=== PATIENT | female | born 1940 | race Caucasian/White ===

== ENCOUNTER 2022-08-13 09:22 | Day surgery (SDC) | payer MEDICARE ==
[2022-08-13] MEDS ORDERED: LIDOCAINE HCL 2% 100 MG/5 ML IJ ONE (09:23)
[2022-08-13] MEDS ORDERED: Decadron 4 MG INJ IV ONE (09:23)
[2022-08-13] MEDS ORDERED: DIPRIVAN 200 MG/20 ML IV ONE (11:07)
--- NOTE | 2022-08-13 11:48 | XRAY ---
Indication: Left C2-C5 MBB. Intraoperative fluoroscopy was provided for 11 seconds. 2 digital spot image submitted for interpretation demonstrates posterior needle tips projecting over the expected left C2-C5 nerve roots. Correlate with intraoperative findings/report.
--- NOTE | 2022-08-13 12:08 | XRAY ---
11 seconds of fluoroscopy was used in surgery for a left C2-C5 MBB.
[2022-08-13] MEDS ORDERED: Lactated Ringers 1,000 ML IV ONE (15:18)
== END 2022-08-13 11:40 | disposition home or self-care (01) ==
LOC: SDC-PAIN 09:22
PROVIDERS: ATTEND Psychiatry & Neurology Pain Medicine
DX: M47.812 Spondylosis without myelopathy or radiculopathy, cervical region (principal); Z79.899 Other long term (current) drug therapy
CPT/HCPCS: 64490; 64491; 64492; 72040; 77002; J1100; J2704

== ENCOUNTER 2022-10-01 10:11 | Day surgery (SDC) | payer MEDICARE ==
[2022-10-01] MEDS ORDERED: BUPIVACAINE 0.5% VIAL IJ ONE (10:12)
[2022-10-01] MEDS ORDERED: Decadron 4 MG INJ IV ONE (10:12)
[2022-10-01] MEDS ORDERED: DIPRIVAN 200 MG/20 ML IV ONE (11:20)
--- NOTE | 2022-10-01 13:17 | XRAY ---
Indication: Left C2-C5 MBB. Intraoperative fluoroscopy provided for 14 seconds. 3 digital spot image submitted for interpretation demonstrates posterior needle tips projecting over the expected left C2-C5 nerve roots. Correlate with intraoperative findings/report.
--- NOTE | 2022-10-01 13:23 | XRAY ---
14 seconds of fluoroscopy was used in surgery for a left C2-C5 MBB.
[2022-10-01] MEDS ORDERED: Lactated Ringers 1,000 ML IV ONE (13:36)
== END 2022-10-01 11:50 | disposition home or self-care (01) ==
LOC: SDC-PAIN 10:11
PROVIDERS: ATTEND Psychiatry & Neurology Pain Medicine
DX: M47.812 Spondylosis without myelopathy or radiculopathy, cervical region (principal); Z79.899 Other long term (current) drug therapy
CPT/HCPCS: 64490; 64491; 64492; 72040; 77002; J1100; J2704

== ENCOUNTER 2022-11-06 10:17 | Day surgery (SDC) | payer MEDICARE ==
[2022-11-06] MEDS ORDERED: Decadron 4 MG INJ IV ONE (10:18)
[2022-11-06] MEDS ORDERED: LIDOCAINE HCL 2% 100 MG/5 ML IJ ONE (10:18)
[2022-11-06] MEDS ORDERED: DIPRIVAN 200 MG/20 ML IV ONE (11:26)
[2022-11-06] MEDS ORDERED: Lactated Ringers 1,000 ML IV ONE (11:58)
--- NOTE | 2022-11-06 14:03 | XRAY ---
Indication: Right C2-C5 MBB. Intraoperative fluoroscopy provided for 16 seconds. 2 digital spot image submitted for interpretation demonstrates posterior needle tips projecting over the expected right C2-C5 nerve roots. Correlate with intraoperative findings/report.
--- NOTE | 2022-11-06 14:44 | XRAY ---
16 seconds of fluoroscopy was used in surgery for a right C2-C5 MBB.
== END 2022-11-06 11:55 | disposition home or self-care (01) ==
LOC: SDC-PAIN 10:17
PROVIDERS: ATTEND Psychiatry & Neurology Pain Medicine
DX: M47.812 Spondylosis without myelopathy or radiculopathy, cervical region (principal)
CPT/HCPCS: 64490; 64491; 64492; 72040; 77002; J1100; J2704

== ENCOUNTER 2023-01-14 13:39 | Day surgery (SDC) | payer MEDICARE ==
[2023-01-14] MEDS ORDERED: LIDOCAINE HCL 1% 50 MG/5 ML VL PF IJ ONE (13:40)
[2023-01-14] MEDS ORDERED: Decadron 4 MG INJ IV ONE (13:40)
[2023-01-14] MEDS ORDERED: BUPIVACAINE 0.5% VIAL IJ ONE (13:40)
[2023-01-14] MEDS ORDERED: Lactated Ringers 1,000 ML IV ONE (15:38)
[2023-01-14] MEDS ORDERED: DIPRIVAN 200 MG/20 ML IV ONE (16:00)
--- NOTE | 2023-01-14 16:58 | XRAY ---
Indication: Left C2-C5 RFA. Intraoperative fluoroscopy provided for 38 seconds. 6 digital spot image submitted for interpretation demonstrates posterior needle tips projecting over the expected left C2-C5 nerve roots. Correlate with intraoperative findings/report.
--- NOTE | 2023-01-15 09:10 | XRAY ---
38 seconds of fluoroscopy was used in surgery for a left C2-C5 RFA.
== END 2023-01-14 16:32 | disposition home or self-care (01) ==
LOC: SDC-PAIN 13:39
PROVIDERS: ATTEND Psychiatry & Neurology Pain Medicine
DX: M47.812 Spondylosis without myelopathy or radiculopathy, cervical region (principal); Z79.899 Other long term (current) drug therapy
CPT/HCPCS: 64633; 64634; 72040; 77002; 99100; J1100; J2001; J2704

== ENCOUNTER 2023-01-28 10:53 | Day surgery (SDC) | payer MEDICARE ==
[2023-01-28] MEDS ORDERED: XYLOCAINE-MPF 1% 5ML SDV IJ ONE (10:54)
[2023-01-28] MEDS ORDERED: Decadron 4 MG INJ IV ONE (10:54)
[2023-01-28] MEDS ORDERED: BUPIVACAINE 0.5% VIAL IJ ONE (10:54)
[2023-01-28] MEDS ORDERED: DIPRIVAN 200 MG/20 ML IV ONE (12:41)
[2023-01-28] MEDS ORDERED: Lactated Ringers 1,000 ML IV ONE (14:34)
--- NOTE | 2023-01-28 15:03 | XRAY ---
Indication: Right C2-C5 RFA. Intraoperative fluoroscopy provided for 28 seconds. 4 digital spot image submitted for interpretation demonstrates posterior needle tips projecting over the expected right C2-C5 nerve roots. Correlate with intraoperative findings/report.
--- NOTE | 2023-01-28 15:07 | XRAY ---
28 seconds of fluoroscopy was used in surgery for a right C2-C5 RFA.
== END 2023-01-28 13:18 | disposition home or self-care (01) ==
LOC: SDC-PAIN 10:53
PROVIDERS: ATTEND Psychiatry & Neurology Pain Medicine
DX: M47.812 Spondylosis without myelopathy or radiculopathy, cervical region (principal); Z79.899 Other long term (current) drug therapy
CPT/HCPCS: 64633; 64634; 72040; 77002; J1100; J2704

== ENCOUNTER 2023-03-04 08:05 | Day surgery (SDC) | payer MEDICARE ==
[2023-03-04] MEDS ORDERED: LIDOCAINE HCL 2% 100 MG/5 ML IJ ONE (08:06)
[2023-03-04] MEDS ORDERED: Depo-Medrol 40 MG/ML IM ONE (08:06)
[2023-03-04] MEDS ORDERED: DIPRIVAN 200 MG/20 ML IV ONE (09:21)
[2023-03-04] MEDS ORDERED: Lactated Ringers 1,000 ML IV ONE (11:17)
--- NOTE | 2023-03-04 12:13 | XRAY ---
Indication: Bilateral L1-L3 MBB. Intraoperative fluoroscopy provided for 32 seconds. Single digital spot image submitted for interpretation demonstrates posterior needle tips projecting over expected left and right L1-L3 nerve roots. Correlate with intraoperative findings/report. Incidental incompletely visualized epidural leads and lower lumbar fusion hardware.
--- NOTE | 2023-03-04 12:21 | XRAY ---
32 seconds of fluoroscopy was used in surgery for a bilateral L1-L3 MBB.
== END 2023-03-04 09:50 | disposition home or self-care (01) ==
LOC: SDC-PAIN 08:05
PROVIDERS: ATTEND Psychiatry & Neurology Pain Medicine
DX: M47.817 Spondylosis without myelopathy or radiculopathy, lumbosacral region (principal); Z79.899 Other long term (current) drug therapy
CPT/HCPCS: 64493; 64494; 72020; 77002; J1030; J2704

== ENCOUNTER 2023-04-15 10:38 | Day surgery (SDC) | payer MEDICARE ==
[2023-04-15] MEDS ORDERED: BUPIVACAINE 0.5% VIAL IJ ONE (10:39)
[2023-04-15] MEDS ORDERED: Depo-Medrol 40 MG/ML IM ONE (10:39)
[2023-04-15] MEDS ORDERED: DIPRIVAN 200 MG/20 ML IV ONE (13:46)
[2023-04-15] MEDS ORDERED: Lactated Ringers 1,000 ML IV ONE (13:52)
--- NOTE | 2023-04-15 15:17 | XRAY ---
Indication: Bilateral L1-L3 MBB. Intraoperative fluoroscopy provided 21 seconds. Single digital spot image submitted for interpretation demonstrates posterior needle tips projecting over the expected left and right L1-L3 nerve roots. Correlate with intraoperative findings/report. Incidental incompletely visualized epidural leads and lower lumbar fusion hardware.
--- NOTE | 2023-04-15 16:42 | XRAY ---
21 seconds of fluoroscopy was used in surgery for a bilateral L1-L3 MBB.
== END 2023-04-15 14:10 | disposition home or self-care (01) ==
LOC: SDC-PAIN 10:38
PROVIDERS: ATTEND Psychiatry & Neurology Pain Medicine
DX: M47.816 Spondylosis without myelopathy or radiculopathy, lumbar region (principal)
CPT/HCPCS: 64493; 64494; 72020; 77002; J1030; J2704

== ENCOUNTER 2023-05-13 10:35 | Day surgery (SDC) | payer MEDICARE ==
[2023-05-13] MEDS ORDERED: XYLOCAINE-MPF 1% 5ML SDV IJ ONE (10:36)
[2023-05-13] MEDS ORDERED: BUPIVACAINE 0.5% VIAL IJ ONE (10:36)
[2023-05-13] MEDS ORDERED: Depo-Medrol 40 MG/ML IM ONE (10:36)
[2023-05-13] MEDS ORDERED: Lactated Ringers 1,000 ML IV ONE (12:18)
[2023-05-13] MEDS ORDERED: DIPRIVAN 200 MG/20 ML IV ONE ×2 (12:21→12:28)
--- NOTE | 2023-05-13 14:04 | XRAY ---
Indication: Left L1-L3 RFA. Intraoperative fluoroscopy provided for 23 seconds. 5 digital spot image submitted for interpretation demonstrates posterior needle tips projecting over the expected left L1-L3 nerve roots. Correlate with intraoperative findings/report. Incidental incompletely visualized lower lumbar fusion hardware and epidural leads.
--- NOTE | 2023-05-13 15:13 | XRAY ---
23 seconds of fluoroscopy was used in surgery for a left L1-L3 RFA.
== END 2023-05-13 13:00 | disposition home or self-care (01) ==
LOC: SDC-PAIN 10:35
PROVIDERS: ATTEND Psychiatry & Neurology Pain Medicine
DX: M47.816 Spondylosis without myelopathy or radiculopathy, lumbar region (principal)
CPT/HCPCS: 64635; 64636; 72100; 77002; 99100; J1030; J2704

== ENCOUNTER 2023-05-27 10:55 | Day surgery (SDC) | payer MEDICARE ==
[2023-05-27] MEDS ORDERED: LIDOCAINE HCL 1% 50 MG/5 ML VL PF IJ ONE (10:56)
[2023-05-27] MEDS ORDERED: Depo-Medrol 40 MG/ML IM ONE (10:56)
[2023-05-27] MEDS ORDERED: BUPIVACAINE 0.5% VIAL IJ ONE (10:56)
[2023-05-27] MEDS ORDERED: DIPRIVAN 200 MG/20 ML IV ONE (14:14)
[2023-05-27] MEDS ORDERED: Lactated Ringers 1,000 ML IV ONE (15:03)
--- NOTE | 2023-05-27 16:42 | XRAY ---
Indication: Right L1-L3 RFA. Intraoperative fluoroscopy provided for 23 seconds. 4 digital spot image submitted for interpretation demonstrates posterior needle tips projecting over the expected right L1-L3 nerve roots. Correlate with intraoperative findings/report. Incidental incompletely visualized lower lumbar fusion hardware and epidural leads.
--- NOTE | 2023-05-27 16:46 | XRAY ---
23 seconds of fluoroscopy was used in surgery for a right L1-L3 RFA.
== END 2023-05-27 14:49 | disposition home or self-care (01) ==
LOC: SDC-PAIN 10:55
PROVIDERS: ATTEND Psychiatry & Neurology Pain Medicine
DX: M47.816 Spondylosis without myelopathy or radiculopathy, lumbar region (principal)
CPT/HCPCS: 64635; 64636; 72100; 77002; 99100; J1030; J2001; J2704

== ENCOUNTER 2023-07-01 12:37 | Day surgery (SDC) | payer MEDICARE ==
[2023-07-01] MEDS ORDERED: Depo-Medrol 40 MG/ML IM ONE (12:38)
[2023-07-01] MEDS ORDERED: Sodium Chloride 0.9(Preservative Free) 10 ML IJ ONE (12:38)
[2023-07-01] MEDS ORDERED: LIDOCAINE HCL 1% 50 MG/5 ML VL PF IJ ONE (12:38)
[2023-07-01] MEDS ORDERED: DIPRIVAN 200 MG/20 ML IV ONE (14:44)
[2023-07-01] MEDS ORDERED: Lactated Ringers 1,000 ML IV ONE (15:03)
--- NOTE | 2023-07-01 16:52 | XRAY ---
Indication: Caudal ALEX Intraoperative fluoroscopy provided for 30 seconds. 5 digital spot images submitted for interpretation demonstrates caudal needle tip projecting mid sacrum. Small amount of contrast injected for needle tip placement. Correlate with intraoperative findings/report.
--- NOTE | 2023-07-01 17:14 | XRAY ---
30 seconds of fluoroscopy was used in surgery for a caudal ALEX.
== END 2023-07-01 15:26 | disposition home or self-care (01) ==
LOC: SDC-PAIN 12:37
PROVIDERS: ATTEND Psychiatry & Neurology Pain Medicine
DX: M54.16 Radiculopathy, lumbar region (principal)
CPT/HCPCS: 62323; 72220; 77003; J1010; J2001; J2704; Q9966

== ENCOUNTER 2023-10-28 10:06 | Day surgery (SDC) | payer MEDICARE ==
[2023-10-28] MEDS ORDERED: Sodium Chloride 0.9(Preservative Free) 10 ML IJ ONE (10:07)
[2023-10-28] MEDS ORDERED: Decadron 4 MG INJ IV ONE (10:07)
[2023-10-28] MEDS ORDERED: DIPRIVAN 200 MG/20 ML IV ONE (11:58)
[2023-10-28] MEDS ORDERED: Lactated Ringers 1,000 ML IV ONE (12:51)
--- NOTE | 2023-10-28 13:59 | XRAY ---
Indication: Left L4-S1 transforaminal ALEX. Intraoperative fluoroscopy provided for 1 minute 4 seconds. 5 digital spot image submitted for interpretation demonstrates posterior needle tips projecting over the expected left L4 and L5 nerve roots. Small amount of contrast injected for needle tip placement. Correlate with intraoperative findings/report. Incidental multilevel lumbar fusion hardware.
--- NOTE | 2023-10-28 15:13 | XRAY ---
One minute and 4 seconds of fluoroscopy was used in surgery for a left L4-S1 transforaminal ALEX.
== END 2023-10-28 12:30 | disposition home or self-care (01) ==
LOC: SDC-PAIN 10:06
PROVIDERS: ATTEND Psychiatry & Neurology Pain Medicine
DX: M54.16 Radiculopathy, lumbar region (principal)
CPT/HCPCS: 64483; 64484; 72100; 77003; J1100; J2704; Q9966

== ENCOUNTER 2023-12-27 01:00 | Emergency (ER) | payer MEDICARE ==
[2023-12-27 01:23] VITALS: TEMP 100.1
--- NOTE | 2023-12-27 01:26 | ERPHSYRPT ---
- History of Present Illness Time Seen by Provider: 12/27/23 01:26 Historian: patient Exam Limitations: no limitations Patient Subjective Stated Complaint: c/o of bloody stools and bilat. lower abdomen pain Triage Nursing Assessment: Pt brought self to ED with c/o of bloody stools. patients stated she had n/v/d yesterday. Pt noticed blood in stool yesterday and thought it would get better but still had bloody stools today. Pt stated, "I was mowing the yard yesterday, was dizzy when I stood up, when I made it in bathroom I sat down on the seat but I ended up on the floor." patient rates 5/10 pain in left side lower abdomen with palpation, bowel sounds present in all 4 quads, last BM today, brought in by wheelchair, tachycardic, skin w/n/d, pulses normal, pt doesn't appear to be in any distress at this time. Physician History: The patient, an 83-year-old with a history of cardiac disease managed with a stent, presented with rectal bleeding that started the previous day. The initial episode was accompanied by vomiting and diarrhea, which occurred after consuming a Mc[employer] and mowing the lawn. The patient reported feeling weak and ended up on the floor due to the severity of the symptoms. The bleeding was described as significant, enough to turn the water red, but without any visible clots. The patient also reported abdominal pain and a feeling of tightness, particularly upon standing. The patient has never had a colonoscopy and has not previously experienced similar symptoms. She also reported taking medication for her cardiac condition, but no other health issues were mentioned. The patient drove herself to the hospital and reported that the pain was currently manageable. Timing/Duration: yesterday Activities at Onset: rest Quality: sharpness, stabbing Abdominal Pain Onset Location: LLQ Pain Radiation: no radiation Severity of Pain-Max: severe Severity of Pain-Current: moderate Modifying Factors: Improves With: nothing. Worsens With: defecating, movement, palpation Associated Symptoms: diarrhea, fever/chills, weakness, No chest pain, No vomiting Previous symptoms: no prior history Allergies/Adverse Reactions: meperidine HCl [From Demerol] Adverse Reaction (Intermediate, Verified 12/27/23 01:24) Vomiting Ktixidb-WYG-AzH Reductase Inhibitor [Mzpfzuz-Yyo-Sze Reductase Inhibitor] Adverse Reaction (Intermediate, Verified 12/27/23 01:24) Muscle Aches Home Medications: Aspirin [Lajas Aspirin] 81 mg PO DAILY 07/22/15 [History] Cetirizine HCl [Zyrtec] 10 mg PO DAILY 07/22/15 [History] Gabapentin [Neurontin] 300 mg PO TID 07/22/15 [History] Multivitamin [Multivitamins] 1 each PO DAILY 07/22/15 [History] Omeprazole 20 MG [Prilosec 20 mg] 20 mg PO DAILY 07/22/15 [History] dilTIAZem HCL [Cardizem] 60 mg PO BID 07/22/15 [History] lisinopriL [Zestril] 20 mg PO BID 07/22/15 [History] Acetaminophen/Diphenhydramine [Acetaminophen Pm Caplet] 1 tab PO DAILY PRN PRN 12/27/23 [History] Cholecalciferol (Vitamin D3) [Vitamin D3] 10 mcg PO WEEKLY 12/27/23 [History] Empagliflozin [Jardiance] 10 mg PO DAILY 12/27/23 [History] Furosemide 20 mg [Lasix 20 mg] 20 mg PO DAILY 12/27/23 [History] Isosorbide Mononitrate 30 mg [Imdur 30 MG] 30 mg PO DAILY 12/27/23 [History ] Nitroglycerin 0.4 mg (Ed) [Nitrostat 0.4 MG (ED)] 0.4 mg SL DAILY PRN PRN 12/27/23 [History] Rosuvastatin Calcium 10 mg PO DAILY 12/27/23 [History] Hx Tetanus, Diphtheria Vaccination/Date Given: No (unknown) Hx Influenza Vaccination/Date Given: No Hx Pneumococcal Vaccination/Date Given: No Travel Risk - International Travel Have you traveled outside of the country in past 3 weeks: No - Emerging Infectious Disease Are you exhibiting symptoms associated with any current EIDs: Yes Symptoms: Abdominal Pain, Diarrhea - Review of Systems All Other Systems: Reviewed and Negative - Past Medical History Pertinent Past Medical History: Yes ENT History: Cataracts Cardiac History: Hypertension Respiratory History: Bronchitis Musculoskeletal History: Arthritis GI Medical History: No Pertinent History History: No Pertinent History Female Reproductive Disorders: No Pertinent History Other Medical History: subdural hematoma - Past Surgical History Past Surgical History: Yes Neuro Surgical History: Neurological Surgery Gastrointestinal: Cholecystectomy Musculoskeletal: Orthopedic Surgery Female Surgical History: Hysterectomy Other Surgical History: brain surgery for subdural hematoma, neck and back surgery, stimulatory removed from back on thursday (12/23/2023) Significant Family History: hypertension - Social History Smoking Status: Former smoker Exposure to second hand smoke: No Drug Use: none Patient Lives Alone: No - Social Determinants of Health Will the patient participate in the screening: Yes Do you worry about a steady place to live?: No Do you have any problems with any of the following?: No known problems In the past 12 months,have you had to go without utilities?: No Transportation Issues: No Has anyone in your support network made you feel unsafe?: No Have you or anyone in your house had to go without enough: No - Nursing Vital Signs Nursing Vital Signs: Initial Vital Signs Temperature 100.1 F 12/27/23 01:06 Pulse Rate 104 H 12/27/23 01:06 Respiratory Rate 24 12/27/23 01:06 Blood Pressure 139/91 12/27/23 01:06 O2 Sat by Pulse Oximetry 93 L 12/27/23 01:06 Pain Scale Pain Intensity 5 - Physical Exam General Appearance: no apparent distress Eye Exam: PERRL/EOMI, eyes nml inspection Gastrointestinal/Abdomen Exam: soft, normal bowel sounds, tenderness (LLQ), guarding, No distention, No rebound Back Exam: normal inspection, normal range of motion, No CVA tenderness Extremity Exam: normal inspection, No tenderness Neurologic Exam: alert, oriented x 3, cooperative Skin Exam: normal color, warm, dry SpO2 Interpretation: normal SpO2: 93 O2 Delivery: Room Air - Course Nursing assessment & vital signs reviewed: Yes - CT Exams Abdomen/Pelvis CT Interpretation: Tele-radiologist Report, diverticulitis, Other (Bosniak 1 renal cysts, ill defined lytic lesion right iliac bone) Ordered Tests: Active Orders 24 hr Category Date Time Status IV Insertion STAT Care 12/27/23 01:28 Active ABDOMEN AND PELVIS W CONTRAST [CT] Stat Exams 12/27/23 01:41 Completed CBC W DIFF Stat Lab 12/27/23 01:47 Completed CMP Stat Lab 12/27/23 01:47 Completed Lactic Acid Stat Lab 12/27/23 01:50 Completed OB-FECAL SCREEN Stat Lab 12/27/23 Ordered UA W/RFX UR CULTURE Stat Lab 12/27/23 01:40 Ordered Medication Summary Discontinued Medications Generic Name Dose Route Start Last Admin Trade Name Laurence PRN Reason Stop Dose Admin Acetaminophen 1,000 mg in 100 mls @ 400 mls/hr 12/27/23 01:41 12/27/23 01:59 Ofirmev IV 12/27/23 01:55 400 mls/hr 1HRPRIOR ONE Administration Ceftriaxone Sodium 1 gm in 100 mls @ 200 mls/hr 12/27/23 01:42 12/27/23 03:08 Rocephin 1 Gm / 100 Ml Nacl IV 12/27/23 02:11 Infused STAT ONE Infusion Metronidazole 500 mg in 100 mls @ 200 mls/hr 12/27/23 01:42 12/27/23 03:07 Flagyl 500 Mg Ivpb IV 12/27/23 02:11 Infused STAT STA Infusion Acetaminophen Confirm 12/27/23 01:56 Ofirmev Administered 12/27/23 01:57 Dose 100 mls @ ud IV .STK-MED ONE Sodium Chloride 1,000 mls @ 999 mls/hr 12/27/23 02:16 12/27/23 02:36 Sodium Chloride 0.9% 1000 Ml IV 12/27/23 03:16 999 mls/hr .Q1H1M STA Administration Sodium Chloride Confirm 12/27/23 02:26 Sodium Chloride 0.9% 1000 Ml Administered 12/27/23 02:27 Dose 1,000 mls @ ud .ROUTE .STK-MED ONE Metronidazole Confirm 12/27/23 02:26 Flagyl 500 Mg Ivpb Administered 12/27/23 02:27 Dose 500 mg in 100 mls @ ud IV .STK-MED ONE Ceftriaxone Sodium Confirm 12/27/23 02:27 Rocephin 1 Gm / 100 Ml Nacl Administered 12/27/23 02:28 Dose 1 gm in 100 mls @ ud IV .STK-MED ONE Lab/Rad Data: Laboratory Result Diagrams 12/27/23 01:47 12/27/23 01:47 Laboratory Results 12/27/23 12/27/23 12/27/23 Range/Units 01:50 01:47 01:47 WBC 15.1 H (3.98-10.04) x10^3/uL RBC 4.14 (3.93-5.22) x10^6/uL Hgb 12.1 (11.2-15.7) g/dL Hct 36.0 (34.1-44.9) % MCV 87.0 (79.4-94.8) fL MCH 29.2 (25.6-32.2) pg MCHC 33.6 (32.2-35.5) g/dL RDW 13.9 (11.7-14.4) % Plt Count 254 (182-369) x10^3/uL MPV 11.7 (9.4-12.3) fL Gran % 82.7 H (34.0-71.1) % Immature Gran % (Auto) 0.3 (0.001-0.429) % Nucleat RBC Rel Count 0.0 (0.00-0.2) % Eos # (Auto) 0.01 L (0.04-0.36) x10^3/uL Immature Gran # (Auto) 0.05 H (0.001-0.031) x10^3u/L Absolute Lymphs (auto) 1.46 (1.18-3.74) x10^3/uL Absolute Monos (auto) 1.04 H (0.24-0.86) x10^3/uL Absolute Nucleated RBC 0.00 (0.00-0.012) x10^3u/L Lymphocytes % 9.7 L (19.3-51.7) % Monocytes % 6.9 (4.7-12.5) % Eosinophils % 0.1 L (0.7-5.8) % Basophils % 0.3 (0.1-1.2) % Absolute Granulocytes 12.52 H (1.56-6.13) x10^3/uL Basophils # 0.04 (0.01-0.08) x10^3/uL Sodium 136 (135-145) mmol/L Potassium 4.4 (3.5-5.1) mmol/L Chloride 106 (98-107) mmol/L Carbon Dioxide 17 L (22-30) mmol/L Anion Gap 18.3 H (5-15) MEQ/L BUN 15 (7-17) mg/dL Creatinine 1.07 H (0.52-1.04) mg/dL Estimated GFR 52.2 ML/MIN Glucose 133 H (74-106) mg/dL Lactic Acid 1.6 (0.4-2.0) Calcium 8.9 (8.4-10.2) mg/dL Total Bilirubin 0.70 (0.2-1.3) mg/dL AST 38 H (14-36) U/L ALT 25 (0-35) U/L Alkaline Phosphatase 104 (38-126) U/L Serum Total Protein 6.4 (6.3-8.2) g/dL Albumin 4.0 (3.5-5.0) g/dL - Progress Progress Note: Rectal Bleeding Acute onset of rectal bleeding with associated abdominal pain. No prior history of similar symptoms. No prior colonoscopy. Possible differential diagnoses inclu de diverticulitis or other colonic irritation. -Order CT scan of abdomen. -Check complete blood count to assess hemoglobin level. -Administer IV antibiotics. -If hemoglobin is less than 8, transfuse blood. -Administer IV Tylenol for pain management. 12/27/23 04:02 CT confirms diverticulitis w/o abscess. Bilateral Bosniak I renal cysts. Ill defined lytic lesion anterior right iliac bone measuring 3.6cm x 1.8cm. Hb within acceptable limits. No other significant findings on lab evaluation. Will DC home on Augmentin and Flagyl. Counseled pt/family regarding: lab results, diagnosis, need for follow-up, rad results Medical Desision Making - Diagnostic Testing Diagnostic test were ordered, analyzed, and reviewed by me: Yes Radiological Interpretation: Interpreted by me, Reviewed by me, Teleradiologist Report - Risk of complications The pt has a mod risk of morbidity or mortality based on: Need for prescription drug management - Departure Departure Disposition: Home Clinical Impression: Diverticulitis, Lytic lesion of bone on x-ray, Renal cyst, LLQ abdominal pain Condition: Good Critical Care Time: No Referrals: MARCE PAREDES MD [Primary Care Provider] - Follow up/PCP as directed Instructions: Diverticulosis (DC) Prescriptions: Amox Tr/Potass Clav. 875 mg [Augmentin 875-125 Tablet] 875 mg PO BID 10 Days #20 tablet Metronidazole 500 mg [Flagyl 500 MG] 500 mg PO TID 10 Days #30 tablet
[2023-12-27 01:49] LABS: Absolute Neutrophil Ct (ANC) 12.52 x10^3/uL (1.56-6.13); BASOPHIL % 0.3 % (0.1-1.2); Basophil (Absolute #) 0.04 x10^3/uL (0.01-0.08); Eosinophil % 0.1 % (0.7-5.8); Eosinophil (Absolute #) 0.01 x10^3/uL (0.04-0.36); Hemoglobin 12.1 g/dL (11.2-15.7); IMMATURE GRAN # 0.05 x10^3u/L (0.001-0.031); IMMATURE GRAN % 0.3 % (0.001-0.429); Lymphocyte (Absolute #) 1.46 x10^3/uL (1.18-3.74); Lymphocytes % 9.7 % (19.3-51.7); Mean Corpuscular Hemoglobin 29.2 pg (25.6-32.2); Mean Corpuscular Hgb Concent. 33.6 g/dL (32.2-35.5); Mean Platelet Volume 11.7 fL (9.4-12.3); Monocyte (Absolute #) 1.04 x10^3/uL (0.24-0.86); Monocytes % 6.9 % (4.7-12.5); Neutrophil % 82.7 % (34.0-71.1); Platelet Count 254 x10^3/uL (182-369); Red Blood Count 4.14 x10^6/uL (3.93-5.22); Red Cell Distribution Width 13.9 % (11.7-14.4); White Blood Count 15.1 x10^3/uL (3.98-10.04)
[2023-12-27] MEDS ORDERED: OFIRMEV 100 ML IV ONE (01:56)
[2023-12-27 01:57] LABS: ANION GAP 18.3 MEQ/L (5-15); BILIRUBIN,TOTAL 0.7 mg/dL (0.2-1.3); Calcium 8.9 mg/dL (8.4-10.2); Creatinine 1 1.07 mg/dL (0.52-1.04); EST GLOMERULAR FILTRATION RATE 52.2 ML/MIN; Potassium 4.4 mmol/L (3.5-5.1); Total Protein 6.4 g/dL (6.3-8.2)
[2023-12-27] MEDS: OFIRMEV 1,000 MG/100 ML ML IV ONE (01:59)
[2023-12-27] MEDS ORDERED: Sodium Chloride 0.9% 1000 ML 1,000 ML ONE (02:26)
[2023-12-27] MEDS ORDERED: FLAGYL 500 MG IVPB 500 MG/100 ML BAG IV ONE (02:26)
[2023-12-27] MEDS ORDERED: ROCEPHIN 1 GM / 100 ML NaCl 1 GM/100 ML IVPB IV ONE (02:27)
[2023-12-27] MEDS: Sodium Chloride 0.9% 1000 ML 1,000 ML IV STA (02:36)
[2023-12-27] MEDS: FLAGYL 500 MG IVPB 500 MG/100 ML BAG IV STA (02:37)
[2023-12-27] MEDS: ROCEPHIN 1 GM / 100 ML NaCl 1 GM/100 ML IVPB IV ONE (02:38)
--- NOTE | 2023-12-27 03:55 | XRAY ---
CLINICAL HISTORY: abd pain COMPARISON: No prior studies available for comparison. TECHNIQUE: CT of the abdomen and pelvis was performed with IV contrast, with the following protocol: axial images with, and reconstructed coronal and sagittal images. One of the following dose reduction techniques was utilized for this exam: Automated exposure control, adjustment of the mA and/or kV according to patient size, and use of iterative reconstruction. FINDINGS: The visualized lower chest shows a small hiatal hernia. Abdomen: Liver: Normal in size, shape, and density. No focal lesions, cysts, or masses were identified. Hepatic vasculature and biliary ducts are unremarkable. Gallbladder and Biliary System: Surgical clips seen at the site of the gallbladder, likely due to cholecystectomy. The common bile duct is normal in caliber without dilation. Pancreas: Pancreatic head, body, and tail are visualized and appear normal in size and density. No pancreatic masses or calcifications were noted. The pancreatic duct is not dilated. Spleen: Normal in size, shape, and density. No splenic lesions or masses were identified. Kidneys and Adrenal Glands: Multiple bilateral renal cysts the largest measured about 7.5 x 6.5 cm seen in the lower pole of the left kidney, Bosniak I. Both kidneys are normal in size, shape, and position. Cortical thickness is within normal limits. No renal calculi or hydronephrosis. Adrenal glands are unremarkable with no evidence of masses or hyperplasia. Additional findings : Atherosclerotic changes of the abdominal aorta and major branches Pelvis: Urinary Bladder: Unremarkable. The uterus could not be visualized with hyperdense material in the upper vaginal region could be surgical clips/foreign body. Please correlate with surgical history. Bowel: Multiple colonic diverticulosis. Faint fat stranding seen in the left iliac fossa, raising the possibility of early diverticulitis. The visualized bowel loops are normal in caliber and appearance. No evidence of bowel obstruction or wall thickening. No radiological signs of acute appendicitis. Bones and Soft Tissues: An ill-defined lytic lesion seen in the anterior aspect of the right iliac bone with a sclerotic component and cortical irregularity measured 3.6x1.8 cm. Another well-defined lytic lesion seen in posterior aspect of right iliac bone, measuring about 2 x 1.3 cm. Fixation screws and the plate, seen at the level of L3-L5 vertebrae. Degenerative changes of the visualized spine. IMPRESSION: 1. Multiple colonic diverticulosis. Faint fat stranding seen in left iliac fossa, raising the possibility of early diverticulitis. Needs clinical correlation. 2. Multiple bilateral renal cysts, Bosniak I. 3. A small hiatal hernia. 4. Surgical clips seen at the site of the gallbladder, likely due to cholecystectomy. Please correlate with surgical history. 5. An ill-defined lytic lesion seen in the anterior aspect of the right iliac bone with sclerotic component and cortical irregularity measured 3.6x1.8 cm. Recommend follow-up and further assessment as clinically needed. 6. Fixation screws and the plate, seen at the level of L3-L5 vertebrae. Please correlate with surgical history. 7. The uterus could not be visualized with hyperdense material in upper vaginal region could be surgical clips/foreign body. Please correlate with surgical history. Electronically Signed by: Mir Carmona MD. (12/27/2023 03:51:41 EDT)
[2023-12-27 04:02] VITALS: BP 137/78; PULSE 83; RESP 17
[2023-12-27 04:06] VITALS: O2SAT 93
== END 2023-12-27 04:27 | disposition home or self-care (01) ==
LOC: ED 01:00
DX: K57.92 Diverticulitis of intestine, part unspecified, without perforation or abscess without bleeding (principal); M89.9 Disorder of bone, unspecified; Q61.02 Congenital multiple renal cysts; R10.32 Left lower quadrant pain; K62.5 Hemorrhage of anus and rectum; R11.2 Nausea with vomiting, unspecified; R19.7 Diarrhea, unspecified; R53.1 Weakness; I10 Essential (primary) hypertension; Z79.84 Long term (current) use of oral hypoglycemic drugs; Z79.899 Other long term (current) drug therapy
CPT/HCPCS: 36000; 36415; 74177; 80053; 83605; 85025; 96365; 96368; 99284; J0696

== ENCOUNTER 2024-05-09 13:29 | Emergency (ER) | payer MEDICARE ==
[2024-05-09 14:14] VITALS: PULSE 88; RESP 16; TEMP 97.6
--- NOTE | 2024-05-09 14:40 | ERPHSYRPT ---
- History of Present Illness Time Seen by Provider: 05/09/24 14:38 Source: patient Exam Limitations: no limitations Patient Subjective Stated Complaint: fall Triage Nursing Assessment: patient caught her foot on the [place] approx 1300 and fell. she has visible hematoma to the left eye. patient has hx of sub/hematoma from a previous fall in 2008. Timing/Duration: today Severity: mild Associated Symptoms: denies symptoms Allergies/Adverse Reactions: meperidine HCl [From Demerol] Adverse Reaction (Intermediate, Verified 12/27/23 01:24) Vomiting Woxvmvi-ZEO-[id number] Reductase Inhibitor [Cehwzud-Tao-Ycf Reductase Inhibitor] Adverse Reaction (Intermediate, Verified 12/27/23 01:24) Muscle Aches Home Medications: Aspirin [[place] Aspirin] 81 mg PO DAILY 07/22/15 [History] Cetirizine HCl [Zyrtec] 10 mg PO DAILY 07/22/15 [History] Gabapentin [Neurontin] 300 mg PO TID 07/22/15 [History] Multivitamin [Multivitamins] 1 each PO DAILY 07/22/15 [History] lisinopriL [Zestril] 20 mg PO BID 07/22/15 [History] Acetaminophen/Diphenhydramine [Acetaminophen Pm Caplet] 1 tab PO DAILY PRN PRN 12/27/23 [History] Cholecalciferol (Vitamin D3) [Vitamin D3] 10 mcg PO WEEKLY 12/27/23 [History] Empagliflozin [Jardiance] 10 mg PO DAILY 12/27/23 [History] Furosemide 20 mg [Lasix 20 mg] 20 mg PO DAILY 12/27/23 [History] Isosorbide Mononitrate 30 mg [Imdur 30 MG] 30 mg PO DAILY 12/27/23 [History] Nitroglycerin 0.4 mg (Ed) [Nitrostat 0.4 MG (ED)] 0.4 mg SL DAILY PRN PRN 12/27/23 [History] Rosuvastatin Calcium 10 mg PO DAILY 12/27/23 [History] Hx Tetanus, Diphtheria Vaccination/Date Given: No (unknown) Hx Influenza Vaccination/Date Given: No Hx Pneumococcal Vaccination/Date Given: No Travel Risk - International Travel Have you traveled outside of the country in past 3 weeks: No - Emerging Infectious Disease Are you exhibiting symptoms associated with any current EIDs: No Symptoms: Abdominal Pain, Diarrhea - Review of Systems Constitutional: No Symptoms Eyes: No Symptoms Ears, Nose, & Throat: No Symptoms Respiratory: No Symptoms Cardiac: No Symptoms Abdominal/Gastrointestinal: No Symptoms Musculoskeletal: No Symptoms Skin: No Symptoms Neurological: No Symptoms - Past Medical History Pertinent Past Medical History: Yes ENT History: Cataracts Cardiac History: Hypertension, Other Respiratory History: Bronchitis Musculoskeletal History: Arthritis GI Medical History: No Pertinent History History: No Pertinent History Female Reproductive Disorders: No Pertinent History Other Medical History: subdural hematoma, a fib - Past Surgical History Past Surgical History: Yes Neuro Surgical History: Neurological Surgery Gastrointestinal: Cholecystectomy Musculoskeletal: Orthopedic Surgery Female Surgical History: Hysterectomy Other Surgical History: brain surgery for subdural hematoma, neck and back surgery, stimulatory removed from back on thursday (12/23/2023) Significant Family History: hypertension - Social History Smoking Status: Smoker, status unknown Drug Use: none - Social Determinants of Health Will the patient participate in the screening: Yes Do you worry about a steady place to live?: No In the past 12 months,have you had to go without utilities?: No Transportation Issues: No Has anyone in your support network made you feel unsafe?: No Have you or anyone in your house had to go w/o enough food: No - Nursing Vital Signs Nursing Vital Signs: Initial Vital Signs Temperature 97.6 F 05/09/24 14:12 Pulse Rate 88 05/09/24 14:12 Respiratory Rate 16 05/09/24 14:12 Blood Pressure 122/88 05/09/24 14:12 O2 Sat by Pulse Oximetry 94 L 05/09/24 14:12 Pain Scale Pain Intensity 2 - Physical Exam General Appearance: no apparent distress Eye Exam: PERRL/EOMI Ears, Nose, Throat Exam: normal ENT inspection (there is bruising to the left lateral orbital area ) Respiratory Exam: normal breath sounds Cardiovascular Exam: regular rate/rhythm Gastrointestinal/Abdomen Exam: soft, normal bowel sounds SpO2: 94 Ordered Tests: Active Orders 24 hr Category Date Time Status FACIAL BONES WO CONTRAST [CT] Stat Exams 05/09/24 14:37 Completed HEAD WITHOUT CONTRAST [CT] Stat Exams 05/09/24 14:37 Completed - Progress Progress Note: Patient was seen and evaluated for closed head injury CT scan of the head and facial bones were ordered she was offered Tylenol however refused at this time, her tetanus is up-to-date 05/09/24 14:39 ct head is wnl ct facial bones reveal Impression: Mild left periorbital soft tissue swelling. Osteopenia. Remaining CT facial bones normal. Patient was updated with the results and informed of the need for follow-up with her primary care provider she is to use Tylenol as needed she will be discharged home with Keflex to prevent any wound infections she is to return to the ER if she were to get worse and will be discharged home with head injury precautions 05/09/24 16:51 Medical Desision Making - Discussion of managment Agreed on:: need for follow-up - Departure Departure Disposition: Home Clinical Impression: Superficial laceration, Closed head injury Condition: Good Critical Care Time: No Referrals: MARCE PAREDES MD [Primary Care Provider] - Follow up/PCP as directed Prescriptions: Cephalexin Mh 500 mg [Keflex 500 mg] 500 mg PO BID #14 cap
[2024-05-09 16:05] VITALS: BP 136/81
--- NOTE | 2024-05-09 16:37 | XRAY ---
Indication: Status post fall. Left periorbital injury. Multiple contiguous axial images obtained through the head without contrast. Comparison: May 21, 2018 Again age-appropriate global atrophy and mild periventricular degenerative micro-ischemia bilaterally. No acute intracranial hemorrhage, abnormal extra-axial fluid collection, or mass effect. Fourth ventricle is midline without hydrocephalus. Bony calvarium intact again with previous right parietal craniotomy. Paranasal sinuses and mastoid air cells are clear. Impression: Continued nonacute senile brain with right craniotomy.
--- NOTE | 2024-05-09 16:41 | XRAY ---
Indication: Status post fall. Left periorbital injury. Multiple contiguous axial images obtained through the facial bones. Sagittal and coronal reformatted images obtained. Comparison: None Patient edentulous. Osseous structures demineralized. Mild left periorbital soft tissue swelling. No acute fracture, suspicious bony lesions, or osseous destructive process. Orbits including roof, dobbins, and floors intact. Paranasal sinuses and nasal passages are pneumatized and clear. Visualized noncontrasted soft tissues are unremarkable. Visualized cervical spine intact. CT head reported separately. Impression: Mild left periorbital soft tissue swelling. Osteopenia. Remaining CT facial bones normal.
[2024-05-09 16:56] VITALS: O2SAT 94
== END 2024-05-09 16:59 | disposition home or self-care (01) ==
LOC: ED 13:29
DX: S09.90XA Unspecified injury of head, initial encounter (principal); T14.8XXA Other injury of unspecified body region, initial encounter; W01.0XXA Fall on same level from slipping, tripping and stumbling without subsequent striking against object, initial encounter; I10 Essential (primary) hypertension; Z79.84 Long term (current) use of oral hypoglycemic drugs; Z79.899 Other long term (current) drug therapy
CPT/HCPCS: 70450; 70486; 99283; 99284